=== PATIENT | female | born 1935 | race Caucasian/White ===

== ENCOUNTER 2022-03-16 18:14 | Emergency (ER) | payer MEDICARE, BC, MEDICAID, SELFPAY ==
[2022-03-16 18:12] VITALS: BP 141/60; PULSE 43; RESP 16; TEMP 36.8; O2SAT 90; BMI 26.9
--- NOTE | 2022-03-16 18:14 | HMH.EDSYNC ---
ED Disposition Clinical Impression: Bradycardia Syncope Qualifiers: Syncope type: unspecified Qualified Code(s): R55 - Syncope and collapse Disposition: Home, Self-Care Condition on Discharge: Fair Instructions: DI for Syncope in Adults (Fainting) Additional Instructions: Follow-up with your primary care physician in the next 3 to 4 days. Reduce your metoprolol dose frequency from twice a day to only once a day. Return to the emergency department immediately if you feel worse. All your other medications as prescribed. Referrals: Evelio Morejon MD [Primary Care Provider] - - Critical Care Critical Care Time: No Attestation: On , the high probability of a clinically significant, sudden or life threatening deterioration of the following system(s) required my full and direct attention, intervention and personal management. The time I documented below is in addition to time spent performing reported procedures but includes the following listed in this critical care notation. Medical Decision Making - Medical Records Medical records reviewed: Yes: I reviewed the patient's medical records. - Kael Inquiry Pt receiving controlled substance: No Vital Signs: 03/16/22 18:12 03/16/22 18:20 03/16/22 18:23 Temperature 98.2 F Temperature Source Oral Pulse Rate [Radial] 43 L Respiratory Rate 16 Blood Pressure [Orthostatic Lying] 140/67 Blood Pressure [Orthostatic Sitting] 127/72 Blood Pressure [Orthostatic Standing] 143/65 H Blood Pressure [Right Arm] 141/60 H Blood Pressure Mean [Right Arm] 87 Blood Pressure Position [Right Arm] Sitting 02 Sat by Pulse Oximetry 90 L 97 Oxygen Delivery Method Room Air Nasal Cannula Oxygen Flow Rate (LPM) 2 - Lab Data Lab results reviewed: Yes: I reviewed the patient's lab results. Lab Results 03/16/22 18:13: WBC 6.6, RBC 4.33, Hgb 13.5, Hct 43.1, MCV 99.7 H, MCH 31.1, MCHC 31.2 L, RDW 14.1, Plt Count 179, MPV 9.2, Neut % (Auto) 73.4, Lymph % (Auto) 16.7, [place] % (Auto) 6.0, Eos % (Auto) 2.8, Baso % (Auto) 1.2, Neut # (Auto) 4.8, Lymph # (Auto) 1.1, [place] # (Auto) 0.4, Eos # (Auto) 0.2, Baso # (Auto) 0.1 03/16/22 18:13: Sodium 137, Potassium 3.5, Chloride 102, Carbon Dioxide 28, Anion Gap 10.5, BUN 21 H, Creatinine 1.00, Estimated Creat Clear 43, Estimated GFR 53 L, Est GFR ( Amer) 64, Glucose 124 H, Calcium 9.2, Total Bilirubin 0.7, AST 41 H, ALT 26, Alkaline Phosphatase 130 H, Total Protein 6.7, Albumin 3.8, Globulin 2.9, Albumin/Globulin Ratio 1.3 03/16/22 18:13: Troponin I < 0.01 03/16/22 18:23: POC Glucose 119 H Result diagrams: 03/16/22 18:13 03/16/22 18:13 Orders (Tests/Meds): ORDERS Category Date Time Status Troponin I Q3H Lab 03/16/22 22:00 Ordered Troponin I Q3H Lab 03/17/22 01:00 Ordered - ECG Data Tracing #1 I reviewed this ECG and interpreted as documented below: The patient is EKG was performed at 1818 p.m. Shows a sinus bradycardia with a ventricular rate of 44 bpm. There is a left bundle branch block with left axis deviation otherwise no acute findings. Medical Decision Narrative: Patient had a syncopal episode prior to arrival. The patient's work-up in the emergency department did not reveal any immediately life-threatening or dangerous causes for the patient's syncope. She was noted to be bradycardic at about 44 bpm. However, the patient's blood pressure is stable and normal. Additionally, the patient's orthostatic vital signs did not change significantly. The bradycardia is a sinus bradycardia. The patient denied any chest pain. She feels generalized weakness. Feel that the patient can be safely sent back to the residential. The patient is on a beta-morelia. This would explain the patient's bradycardia. I have recommended that she reduce the metoprolol frequency to once a day from twice a day. Syncope HPI - General Stated Complaint: Weakness Time Seen by Provider: 03/16/22 18:14 M
--- NOTE | 2022-03-16 18:17 | ECG_ITS ---
APPROVED REPORT Exam: Resting ECG HR:44 bpm ECG Measurements Heart Rate 44 AXES AZ 188 P 31 QRSd 148 QRS -32 QT 516 T 8 QTc 468 Conclusion SINUS BRADYCARDIA LEFT AXIS DEVIATION [QRS AXIS < -30] LEFT BUNDLE BRANCH BLOCK [120+ ms QRS DURATION, 80+ ms Q/S IN V1/V2, 85+ ms R IN I/aVL/V5/V6] ABNORMAL ECG UNCONFIRMED REPORT Electronically signed by : Josué Finn MD 03/19/2022 21:33:38
[2022-03-16 18:20] VITALS: BP 127/72; BP 140/67; BP 143/65
[2022-03-16 18:23] VITALS: O2SAT 97
[2022-03-16 18:27] LABS: Basophils # 0.1 K/mm3 (0-0.2); Basophils % 1.2 % (0.1-2.0); Eosinophils # 0.2 K/mm3 (0.0-0.4); Eosinophils % 2.8 % (0.1-12.0); Hematocrit 43.1 % (37.0-47.0); Hemoglobin 13.5 g/dL (12.2-16.2); Lymphocytes # 1.1 K/mm3 (0.7-4.5); Lymphocytes % 16.7 % (10-50); Mean Corpuscular HGB Conc 31.2 g/dL (31.8-35.4); Mean Corpuscular Hemoglobin 31.1 pg (27.0-31.2); Mean Corpuscular Volume 99.7 fl (81-99); Mean Platelet Volume 9.2 fl (7.4-10.4); Monocytes # 0.4 K/mm3 (0.1-1.0); Neutrophils # 4.8 K/mm3 (1.8-7.8); Neutrophils % 73.4 % (37.0-80.0); Platelet Count 179 K/mm3 (142-424); Red Blood Count 4.33 M/mm3 (4.20-5.40); Red Cell Distribution Width 14.1 % (11.5-17.5); White Blood Count 6.6 K/mm3 (4.8-10.8)
[2022-03-16 18:30] LABS: POC Glucose,Bedside 119 (70-110)
--- NOTE | 2022-03-16 18:32 | PC.NURSE ---
Family at BS
[2022-03-16 18:52] LABS: Alanine Aminotransferase 26 U/L (12-78); Albumin Level 3.8 g/dl (3.5-5.0); Albumin/Globulin Ratio 1.3 (1.1-1.8); Alkaline Phosphatase 130 U/L (38-126); Anion Gap 10.5 mEq/L (5-15); Aspartate Amino Transferase 41 U/L (14-36); Bilirubin,Total 0.7 mg/dl (0.2-1.3); Blood Urea Nitrogen 21 mg/dl (7-17); Calcium 9.2 mg/dl (8.4-10.2); Carbon Dioxide 28 mmol/L (22.0-30.0); Chloride 102 mmol/L (98-107); Creatinine Clearance Estimated 43 mL/min (50-200); Estimated Glomerular Filt Rate 53 ml/min (>60); GFR (African American) 64 ML/MIN (>60); Globulin 2.9 g/dL (1.3-3.2); Glucose 124 mg/dl (74-100); Potassium 3.5 mmoL/L (3.5-5.1); Sodium 137 mmol/L (136-145); Total Protein,Serum 6.7 g/dl (6.3-8.2)
[2022-03-16 19:14] LABS: Troponin I < 0.01 ng/ml (0.00-0.034)
[2022-03-16 19:34] VITALS: BP 127/72; PULSE 56; RESP 18; TEMP 36.8; O2SAT 97
== END 2022-03-16 19:36 | disposition home or self-care (01) ==
PROVIDERS: Emergency Provider Emergency Medicine; PCP Family Medicine
DX: R00.1 Bradycardia, unspecified (principal); I44.7 Left bundle-branch block, unspecified
CPT/HCPCS: 80053; 82962; 84484; 85025; 93005; 99283

== ENCOUNTER 2022-05-03 18:28 | Emergency (ER) | payer MEDICARE, BC, MEDICAID, SELFPAY ==
--- NOTE | 2022-05-03 18:22 | ECG_ITS ---
APPROVED REPORT Exam: Resting ECG HR:46 bpm ECG Measurements Heart Rate 46 AXES ND 202 P 75 QRSd 142 QRS -46 QT 519 T 62 QTc 479 Conclusion SINUS BRADYCARDIA LEFT AXIS DEVIATION [QRS AXIS < -30] LEFT BUNDLE BRANCH BLOCK [120+ ms QRS DURATION, 80+ ms Q/S IN V1/V2, 85+ ms R IN I/aVL/V5/V6] ABNORMAL ECG UNCONFIRMED REPORT Electronically signed by : Josué Finn MD 05/04/2022 17:02:13
[2022-05-03 18:25] VITALS: BP 149/55; PULSE 47; RESP 16; TEMP 36.6; O2SAT 98; BMI 24.4
[2022-05-03 18:26] VITALS: BP 149/55
[2022-05-03 18:31] VITALS: BP 136/57; PULSE 48; O2SAT 98
--- NOTE | 2022-05-03 18:34 | PC.NURSE ---
SU[facility] [employer]ORAL[employer] at for pt dylonal
--- NOTE | 2022-05-03 18:38 | CT_ITS ---
PROCEDURE INFORMATION: Exam: CT Head Without Contrast Exam date and time: 05/03/2022 6:50 PM Age: 86 years old Clinical indication: Altered mental status/memory loss and other: Syncopy; Confusion or disorientation; Additional info: Syncope, AMS TECHNIQUE: Imaging protocol: Computed tomography of the head without contrast. Radiation optimization: All CT scans at this facility use at least one of these dose optimization techniques: automated exposure control; mA and/or kV adjustment per patient size (includes targeted exams where dose is matched to clinical indication); or iterative reconstruction. COMPARISON: No relevant prior studies available. FINDINGS: Brain: Age-related volume loss. Decreased attenuation of the supratentorial white matter is likely secondary to chronic microvascular ischemia. No acute intracranial hemorrhage, midline shift or intracranial mass effect. Cerebral ventricles: Ventriculomegaly is commensurate for degree of volume loss. Paranasal sinuses: Visualized sinuses are unremarkable. No fluid levels. Mastoid air cells: Visualized mastoid air cells are well aerated. Bones/joints: Unremarkable. No acute fracture. Soft tissues: Unremarkable. IMPRESSION: No acute intracranial abnormality.
--- NOTE | 2022-05-03 18:38 | XR_ITS ---
PROCEDURE INFORMATION: Exam: XR Chest Exam date and time: 05/03/2022 7:08 PM Age: 86 years old Clinical indication: Other: Syncopy and AMS; Additional info: Syncope, AMS TECHNIQUE: Imaging protocol: Radiologic exam of the chest. Views: 1 view. COMPARISON: No relevant prior studies available. FINDINGS: Lungs: No consolidation. Pleural spaces: Unremarkable. No pleural effusion. No pneumothorax. Heart/Mediastinum: Cardiac silhouette is magnified by portable technique. Vasculature: Elongation of the thoracic aorta with calcification. Bones/joints: Osteopenia. There are degenerative changes involving the left greater than right shoulders and spine. IMPRESSION: No acute process.
--- NOTE | 2022-05-03 18:49 | PC.NURSE ---
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
--- NOTE | 2022-05-03 18:54 | HMH.EDWEAK ---
ED Disposition Clinical Impression: Bradycardia Disposition: Home, Self-Care Condition on Discharge: Good Instructions: DI for Bradycardia Additional Instructions: You were evaluated in the emergency department today. At this time, we feel that your symptoms are most likely due to your slow heart rate due to your beta-morelia use. We suggest cutting back on the beta-morelia dose. Return to the emergency department for any new or worsening symptoms. Follow-up with your primary care provider over the next 48 hours. Referrals: Evelio Morejon MD [Primary Care Provider] - - Critical Care Critical Care Time: No Attestation: On , the high probability of a clinically significant, sudden or life threatening deterioration of the following system(s) required my full and direct attention, intervention and personal management. The time I documented below is in addition to time spent performing reported procedures but includes the following listed in this critical care notation. Medical Decision Making - Kael Inquiry Pt receiving controlled substance: No Vital Signs: 05/03/22 18:25 05/03/22 18:26 05/03/22 18:31 Temperature 98 F Temperature Source Oral Pulse Rate 48 L Pulse Rate [Radial] 47 L Respiratory Rate 16 Blood Pressure 149/55 H 136/57 L Blood Pressure [Right Arm] 149/55 H Blood Pressure Mean 66 95 Blood Pressure Mean [Right Arm] 86 Blood Pressure Position [Right Arm] Sitting 02 Sat by Pulse Oximetry 98 98 Oxygen Delivery Method Room Air - Lab Data Lab Results 05/03/22 20:30: WBC 5.8, RBC 4.52, Hgb 13.9, Hct 44.4, MCV 98.2, MCH 30.8, MCHC 31.3 L, RDW 14.3, Plt Count 148, MPV 9.1, Neut % (Auto) 86.0 H, Lymph % (Auto) 6.5 L, [place] % (Auto) 5.4, Eos % (Auto) 1.6, Baso % (Auto) 0.5, Neut # (Auto) 5.0, Lymph # (Auto) 0.4 L, [place] # (Auto) 0.3, Eos # (Auto) 0.1, Baso # (Auto) 0.0 05/03/22 20:30: D-Dimer 5.92 H 05/03/22 20:30: Sodium 138, Potassium 3.5, Chloride 106, Carbon Dioxide 25, Anion Gap 10.5, BUN 18 H, Creatinine 0.90, Estimated Creat Clear 43, Estimated GFR 59, Est GFR ( Amer) 72, Glucose 134 H, Troponin I < 0.01 05/03/22 20:30: Magnesium 1.7, Total Bilirubin 0.8, Direct Bilirubin 0.3, Conjugated Bilirubin 0.0, Indirect Bilirubin 0.5, Unconjugated Bilirubin 0.5, AST 39 H, ALT 32, Alkaline Phosphatase 138 H, Total Protein 5.6 L, Albumin 3.2 L, Lipase 147 Result diagrams: 05/03/22 20:30 05/03/22 20:30 Orders (Tests/Meds): ORDERS Category Date Time Status Basic Metabolic Panel Stat Lab 05/03/22 20:30 Results Complete Blood Count Auto Diff Stat Lab 05/03/22 20:30 Results Lactic Acid Stat Lab 05/03/22 20:30 Received Troponin I Q3H Lab 05/03/22 21:45 Ordered Troponin I Q3H Lab 05/04/22 00:45 Ordered Troponin I Stat Lab 05/03/22 20:30 Results - ECG Data Tracing #1 ECG demonstrates sinus bradycardia with left bundle branch block. Normal DC interval with no concern for AV block. Arrhythmias present: sinus fay Conduction abnormalities present: LBBB ECG compared to prior tracings: there are no significant changes Medical Decision Narrative: In summary, this patient is an 86-year-old female presenting to the emergency department for evaluation after slumping over her dinner at the table this evening. Differential diagnoses include symptomatic bradycardia, ACS, electrolyte derangements, medication reaction. The patient is clinically well-appearing on physical exam with no complaints at this time, however she is mildly bradycardic. She had a similar presentation in March, and her symptoms were then presumed to be related to her beta-morelia. Will obtain CBC, BMP, LFTs, magnesium, troponin, chest x-ray, and EKG. On reassessment, the patient is resting comfortably with no complaints. She is doing well on room air. She remains mildly bradycardic, however her blood pressure is fine. Labs do not demonstrate any concerning abnormalities aside from an kelin
--- NOTE | 2022-05-03 19:18 | PC.NURSE ---
phone call from daughter, she is on her way here, she is upset with the facility that her mother came from because she was not notified that she was being brought here. She acknowledged that she realizes that has nothing to do with [facility]. Daughter states that the last time her mother was here, she nor her brother spoke to a doctor and to pass it on to the doctor bryon that she expects to have a conversation with them.
[2022-05-03 20:44] LABS: Basophils % 0.5 % (0.1-2.0); Eosinophils # 0.1 K/mm3 (0.0-0.4); Eosinophils % 1.6 % (0.1-12.0); Hematocrit 44.4 % (37.0-47.0); Hemoglobin 13.9 g/dL (12.2-16.2); Lymphocytes # 0.4 K/mm3 (0.7-4.5); Lymphocytes % 6.5 % (10-50); Mean Corpuscular HGB Conc 31.3 g/dL (31.8-35.4); Mean Corpuscular Hemoglobin 30.8 pg (27.0-31.2); Mean Corpuscular Volume 98.2 fl (81-99); Mean Platelet Volume 9.1 fl (7.4-10.4); Monocytes # 0.3 K/mm3 (0.1-1.0); Monocytes % 5.4 % (1.7-9.3); Platelet Count 148 K/mm3 (142-424); Red Blood Count 4.52 M/mm3 (4.20-5.40); Red Cell Distribution Width 14.3 % (11.5-17.5); White Blood Count 5.8 K/mm3 (4.8-10.8)
[2022-05-03 20:51] LABS: MANUAL DIFFERENTIAL MANUAL DIFFERENTIAL (MANUAL DIFF)
[2022-05-03 20:52] LABS: Alanine Aminotransferase 32 U/L (12-78); Albumin Level 3.2 g/dl (3.5-5.0); Alkaline Phosphatase 138 U/L (38-126); Aspartate Amino Transferase 39 U/L (14-36); Bilirubin,Direct 0.3 mg/dl (0.0-0.4); Bilirubin,Indirect 0.5 mg/dL (0.0-0.9); Bilirubin,Total 0.8 mg/dl (0.2-1.3); Bilirubin,Unconjugated 0.5 mg/dL (0.0-1.1); Lipase 147 U/L (23-300); Magnesium 1.7 mg/dl (1.6-2.3); Total Protein,Serum 5.6 g/dl (6.3-8.2)
[2022-05-03 20:53] LABS: Anion Gap 10.5 mEq/L (5-15); Blood Urea Nitrogen 18 mg/dl (7-17); Carbon Dioxide 25 mmol/L (22.0-30.0); Chloride 106 mmol/L (98-107); Creatinine Clearance Estimated 43 mL/min (50-200); Estimated Glomerular Filt Rate 59 ml/min (>60); GFR (African American) 72 ML/MIN (>60); Glucose 134 mg/dl (74-100); Potassium 3.5 mmoL/L (3.5-5.1); Sodium 138 mmol/L (136-145)
[2022-05-03 20:58] LABS: D-Dimer 5.92 ug/mL (0.0-0.5)
[2022-05-03 21:13] LABS: Troponin I < 0.01 ng/ml (0.00-0.034)
[2022-05-03 21:20] VITALS: BP 132/58; PULSE 58; RESP 18; TEMP 36.6; O2SAT 99
[2022-05-03 21:35] LABS: Lactic Acid 2.1 mmol/L (0.7-2.1)
[2022-05-03 21:51] LABS: Calcium 7.9 mg/dl (8.4-10.2)
[2022-05-03 21:59] LABS: Eosinophils % 2 % (0-3); Lymphocytes % 12 % (10-50); Monocytes % 5 % (2-9); Neutrophils % 81 % (42-76); Platelet Estimate Normal; RBC Morphology Normal; Total Cells Counted 100
== END 2022-05-03 21:22 | disposition home or self-care (01) ==
PROVIDERS: Emergency Provider Emergency Medicine; PCP Family Medicine
DX: R00.1 Bradycardia, unspecified (principal); R53.1 Weakness; R79.1 Abnormal coagulation profile; I10 Essential (primary) hypertension; I44.7 Left bundle-branch block, unspecified; Z79.82 Long term (current) use of aspirin; F03.90 Unspecified dementia, unspecified severity, without behavioral disturbance, psychotic disturbance, mood disturbance, and anxiety; Z88.0 Allergy status to penicillin; Z88.1 Allergy status to other antibiotic agents; Z88.3 Allergy status to other anti-infective agents; Z88.5 Allergy status to narcotic agent; Z88.6 Allergy status to analgesic agent; Z88.8 Allergy status to other drugs, medicaments and biological substances
CPT/HCPCS: 70450; 71045; 80048; 80076; 83605; 83690; 83735; 84484; 85007; 85025; 85378; 93005; 99285

== ENCOUNTER 2023-11-29 20:08 | Outpatient (CLI) | payer MEDICARE, BC, MEDICAID, SELFPAY ==
[2023-11-29 20:21] LABS: Microscopic, Urine URINE MICROSCOPIC (MICROSCOPIC)
[2023-11-29 21:10] LABS: Appearance,Urine TURBID (Clear); Blood, Urine Negative (Negative); Color,Urine DARK YELLOW (Yellow); Glucose,Urine (UA) Negative (Negative); Ketones,Urine Negative (Negative); Leukocyte Esterase,Urine TRACE (Negative); Nitrate,Urine Negative (Negative); Protein,Urine TRACE (Negative); Specific Gravity, Urine >= 1.030 (1.005-1.030); Urobilinogen,Urine 0.2 EU/dl (0.2)
[2023-11-29 21:17] LABS: Bilirubin,Urine 1+ (Negative)
[2023-11-29 21:40] LABS: Amorphous Sediment,Urine 1+ /lpf; Bacteria,Urine 3+ /lpf; Squamous Epithelial Cell,Urine Occasional #/hpf (0-5); WBC,Urine Occasional #/hpf (0-3)
== END 2023-11-29 23:59 ==
PROVIDERS: PCP Family Medicine; Visit Provider Family Medicine
DX: Z79.899 Other long term (current) drug therapy (principal); B96.89 Other specified bacterial agents as the cause of diseases classified elsewhere
CPT/HCPCS: 81001; 87086

== ENCOUNTER 2023-11-30 03:36 | Outpatient (CLI) | payer MEDICARE, BC, MEDICAID, SELFPAY ==
[2023-11-30 04:47] LABS: Chloride 98 mmol/L (98-107); Potassium 3.4 mmoL/L (3.5-5.1); Sodium 138 mmol/L (136-145)
[2023-11-30 04:50] LABS: Alanine Aminotransferase 32 U/L (12-78); Albumin Level 3.5 g/dl (3.5-5.0); Albumin/Globulin Ratio 1.2 (1.1-1.8); Alkaline Phosphatase 220 U/L (38-126); Anion Gap 8.4 mEq/L (5-15); Aspartate Amino Transferase 43 U/L (14-36); Bilirubin,Total 1.9 mg/dl (0.2-1.3); Blood Urea Nitrogen 20 mg/dl (7-17); Calcium 9.3 mg/dl (8.4-10.2); Carbon Dioxide 35 mmol/L (22.0-30.0); Estimated Glomerular Filt Rate 52 ml/min (>60); GFR (African American) 63 ML/MIN (>60); Glucose 100 mg/dl (74-100); Total Protein,Serum 6.5 g/dl (6.3-8.2)
[2023-11-30 04:55] LABS: Basophils # 0.1 K/mm3 (0-0.2); Basophils % 0.8 % (0.1-2.0); Eosinophils # 0.3 K/mm3 (0.0-0.4); Eosinophils % 3.2 % (0.1-12.0); Hematocrit 51.2 % (37.0-47.0); Hemoglobin 16.6 g/dL (12.2-16.2); Lymphocytes # 1.3 K/mm3 (0.7-4.5); Mean Corpuscular HGB Conc 32.4 g/dL (31.8-35.4); Mean Corpuscular Volume 98.5 fl (81-99); Mean Platelet Volume 9.8 fl (7.4-10.4); Monocytes # 0.7 K/mm3 (0.1-1.0); Monocytes % 6.8 % (1.7-9.3); Neutrophils # 7.4 K/mm3 (1.8-7.8); Neutrophils % 76.1 % (37.0-80.0); Platelet Count 206 K/mm3 (142-424); Red Cell Distribution Width 14.1 % (11.5-17.5); White Blood Count 9.7 K/mm3 (4.8-10.8)
== END 2023-11-30 23:59 ==
PROVIDERS: PCP Family Medicine; Visit Provider Family Medicine
DX: I42.8 Other cardiomyopathies (principal); R71.8 Other abnormality of red blood cells; B96.89 Other specified bacterial agents as the cause of diseases classified elsewhere
CPT/HCPCS: 80053; 85025